=== PATIENT | male | born 1945 | race Caucasian/White ===

== ENCOUNTER → 2019-07-05 | Outpatient (CLI) | payer MEDICARE, BC | END | disposition home or self-care (01) | LOC: PCVCCLINIC 15:00 | PROVIDERS: ATTEND Internal Medicine Cardiovascular Disease | DX: I25.10 Atherosclerotic heart disease of native coronary artery without angina pectoris (principal); I70.1 Atherosclerosis of renal artery; I44.4 Left anterior fascicular block; I65.29 Occlusion and stenosis of unspecified carotid artery; I10 Essential (primary) hypertension; E78.1 Pure hyperglyceridemia; E78.00 Pure hypercholesterolemia, unspecified; F32.9 Major depressive disorder, single episode, unspecified; M19.90 Unspecified osteoarthritis, unspecified site; Z95.5 Presence of coronary angioplasty implant and graft; Z87.891 Personal history of nicotine dependence; Z90.49 Acquired absence of other specified parts of digestive tract | CPT/HCPCS: 36415; 80061; 93005; G0463 ==

== ENCOUNTER → 2019-07-06 | Outpatient (CLI) | payer MEDICARE, BC ==
[~2019-07-06] MED LIST: REGADENOSON 0.4 MG/5 ML DISP.SYRIN. IV ONE
--- NOTE | 2019-07-06 09:19 | PCVCIMAG ---
APPROVED REPORT Laterality: Bilateral Patient Location: Out-Patient Indications Bruit Doppler Spectral Velocity Analysis PSV / EDVPSV / EDV ECA (R) 62 / 12 cm/sECA (L) 42 / 9 cm/s dICA (R) 55 / 20 cm/sdICA (L) 65 / 28 cm/s Carlitos (R) 43 / 17 cm/smICA (L) 42 / 19 cm/s pICA (R) 39 / 9 cm/spICA (L) 36 / 12 cm/s Bulb (R) 46 / 12 cm/sBulb (L) 41 / 10 cm/s dCCA (R) 65 / 19 cm/sdCCA (L) 66 / 20 cm/s mCCA (R) 64 / 14 cm/smCCA (L) 64 / 13 cm/s Vert (R) 54 / 12 cm/sVert (L) 38 / 12 cm/s ICA/CCA 0.85ICA/CCA 0.98 Findings The right carotid bulb has moderate plaque. The right proximal internal carotid artery shows <40% stenosis. The right common carotid artery shows no significant stenosis. The right external carotid artery shows no significant stenosis. The left carotid bulb has moderate plaque. The left proximal internal carotid artery shows <40% stenosis. Conclusion 1. Right internal carotid artery stenosis (<40%). 2. Left internal carotid artery stenosis (<40%) 3. Antegrade vertebral flow.
--- NOTE | 2019-07-06 14:46 | PCVCIMAG ---
EXAM: BILATERAL RENAL ULTRASOUND AND BILATERAL RENAL DUPLEX INDICATION: Hypertension FINDINGS: Right kidney: Length measures 11.9 cm. No hydronephrosis or extensive renal scarring. 5.7 cm benign cyst upper pole. 9.2 cm benign cyst lower pole. Right renal duplex: Adequate technical quality. No sonographic evidence of renal artery stenosis. The aortic to renal artery ratio is 1.3. The renal vein is patent. Left kidney: Length measures 8.7 cm. No hydronephrosis or extensive renal scarring. Several benign-appearing cysts throughout the left kidney the largest measuring 4.2 cm. Left renal duplex: Origin of the left renal artery is not well seen and could be occluded. The aortic to renal artery ratio is 0. The renal vein is patent. Bladder: No obvious abnormalities. IMPRESSION: No right renal artery stenosis seen. Proximal left renal artery is poorly seen and this may be due to high-grade stenosis or occlusion. Further evaluation with CTA is suggested. EXAM: AORTOILIAC DUPLEX INDICATION: Abdominal aortic aneurysm with reported previous stent graft repair. FINDINGS: AORTA: : Suprarenal aorta measures maximum diameter of 3.7 cm. Prior stent graft repair of abdominal aortic aneurysm. Residual aneurysm sac measures maximum diameter of 3.3 x 4.6 cm. No prior study for comparison. No significant aortic stenosis. RIGHT COMMON ILIAC ARTERY: Maximum diameter is 3.4 cm. No significant stenosis. RIGHT EXTERNAL ILIAC ARTERY: No significant stenosis. LEFT COMMON ILIAC ARTERY: Maximum diameter is 1.9 cm. No significant stenosis. LEFT EXTERNAL ILIAC ARTERY: No significant stenosis. IMPRESSION: Apparent prior stent graft repair of abdominal aortic aneurysm with residual aneurysm sac measuring maximum diameter 4.6 cm. 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 Further evaluation of these findings with abdominal and pelvic CTA examination is suggested. LOC:[id number]
--- NOTE | 2019-07-09 15:49 | PCVCIMAG ---
APPROVED REPORT Study performed: 07/06/2019 08:32:08 EXAM: Comprehensive 2D, Doppler, and color-flow Echocardiogram Patient Location: Echo lab Status: routine BSA: 2.22 HR: 63 bpmBP: 144/82 mmHg Rhythm: NSR Other Information Study Quality: Adequate Risk Factors: Cardiac Risk Factors: HTN, Hyperlipidemia Indications CAD tobacco 2D Dimensions IVSd: 15.44 (7-11mm) LVDd: 40.68 mm PWd: 11.81 (7-11mm)Ascending Ao: 41.34 (22-36mm) LVDs: 32.44 (25-40mm) Left Atrium: 33.53 (27-40mm) Aortic Root: 37.32 mm LV Single Plane 4CH: 54.35 % LV Single Plane 2CH: 56.16 % Biplane EF: 53.7 % Volumes Left Atrial Volume (Systole) Single Plane 4CH: 60.07 mLSingle Plane 2CH: 57.45 mL LA ESV Index: 28.00 mL/m2 Aortic Valve AoV Peak Douglas.: 1.58 m/s AO Peak Gr.: 9.93 mmHgLVOT Max P.05 mmHg LVOT Max V: 1.12 m/s Mitral Valve E/A Ratio: 0.8 MV Decel. Time: 338.73 ms MV E Max Douglas.: 0.60 m/s MV A Douglas.: 0.77 m/s IVRT: 121.11 ms Pulmonary Valve PV Peak Douglas.: 0.95 m/sPV Peak Gr.: 3.61 mmHg Pulmonary Vein P Vein S: 0.39 m/sP Vein A: 0.35 m/s P Vein D: 0.49 m/sP Vein A Dur.: 152.2 msec P Vein S/D Ratio: 0.80 Tricuspid Valve TR Peak Douglas.: 2.48 m/s TR Peak Gr.: 24.63 mmHg Left Ventricle The left ventricle is normal size. There is normal LV segmental wall motion. Mild concentric left ventricular hypertrophy. Left ventricular systolic function is normal. Discordant septal motion, probably from an intraventricular conduction delay. The left ventricular ejection fraction is within the normal range. LVEF is 60-65%. Mild diastolic dysfunction is present (impaired relaxation pattern). Right Ventricle The right ventricle is normal size. The right ventricular systolic function is normal. Atria The left atrium size is normal. The right atrium size is normal. Aortic Valve The aortic valve is trileaflet, mildly sclerotic. Mild aortic regurgitation. There is no aortic valvular stenosis. Mitral Valve The mitral valve is normal in structure. Mild mitral regurgitation. No evidence of mitral valve stenosis. Tricuspid Valve The tricuspid valve is normal in structure. Mild tricuspid regurgitation with PAP of 30 mmHg. Pulmonic Valve The pulmonary valve is normal in structure. There is no pulmonic valvular regurgitation. Great Vessels The aortic root is normal in size. The ascending aorta is mildly dilated (4.1 cm) IVC is normal in size and collapses >50% with inspiration. Pericardium There is no pericardial effusion. There is no pleural effusion. <Conclusion> Left ventricular systolic function is normal. Discordant septal motion, probably from an intraventricular conduction delay. There is normal LV segmental wall motion. LVEF is 60-65%. Mild diastolic dysfunction The aortic valve is trileaflet, mildly sclerotic. Mild aortic regurgitation, no stenosis. The mitral valve is normal in structure. Mild mitral regurgitation. Mild tricuspid regurgitation with pulmonary artery pressure of 30 mmHg. The ascending aorta is mildly dilated (4.1 cm) There is no pericardial effusion.
--- NOTE | 2019-07-10 15:22 | PCVCIMAG ---
APPROVED REPORT Imaging Protocol: Rest Tc-99m/Stress Tc-99m 1 day Study performed: 07/06/2019 09:42:36 Indication: Pre-Operative CV evaluation, CAD Patient Location: Out-Patient Stress Nurse: Ángela Baig RN [place] Tech:Silva Puentes [facility] Ht: 6 ft 2 in Wt: 210 lbs BSA: 2.22 m2 HR: 62 bpm BP: 139/74 mmHg BMI: 26.9 Rhythm: Normal Sinus Rhythm with T wave abnormalities Medical History Medical History: Hyperlipidemia, HTN, CVD, PVD, Former Smoker Medications: Amlodipine, Atorvastatin, Hyzaar, Zetia Allergies: No known drug allergies Cardiac Risk Factors: Age Pretest Chest Pain Characteristics: No chest pain Exercise History: Sedentary Physical Disabilities: Hips Resting Data Rest SPECT myocardial perfusion imaging was performed in supine position 45 minutes following the intravenous injection of 10.4 mCi of Tc-99m Sestamibi. Time of rest injection: 0940 Date: 07/06/2019 Administration Route: IV Administration Site: Left Hand Pharmacologic Stress Pharmacologic stress test was performed by injecting Regadenoson 0.4 mg IV push over 10-15 seconds immediately followed by the intravenous injection of 32.1 mCi of Tc-99m Sestamibi. Time of stress injection: 1100 Date: 07/06/2019 Administration Route: IV Administration Site: Left Hand Gated Stress SPECT was performed 45 minutes after stress injection. The images were gated to evaluate regional wall motion and calculate left ventricular ejection fraction. Stress Test Details Stress Test: Pharmacologic stress was paired with low level exercise. Reason for pharmacologic stress test: physical limitation, using a cane. HRMax Heart Rate (APMHR): 148 bpm Resting HR: 62 bpmTarget HR (85% APMHR): 125 bpm Max HR Achieved: 82 bpm % of APMHR: 55 Recovery HR: 74 bpm BP Resting BP: 139/74 mmHg Max BP: 147/69 mmHg Recovery BP: 129/64 mmHg ECG Resting ECG: Normal Sinus Rhythm with T wave abnormalities Stress ECG: Normal Sinus Rhythm with T wave abnormalities Arrhythmia: PAC's Recovery ECG: Normal Sinus Rhythm with T wave abnormalities Clinical Reason for Termination: Completed protocol Stress Symptoms: Dyspnea Symptoms resolved with caffeine. Stress ECG Conclusion ECG: Non-ischemic Study Quality Study: Good Study Data Post stress, the left ventricular ejection was 68%.. SSS: 3 SRS: 6 SDS: 0 TID = 0.83. Perfusion No evidence of stress induced ischemia or prior myocardial infarction. Wall Motion Normal left ventricular size and function with no regional wall motion abnormalities. Nuclear Conclusion No evidence of stress induced ischemia or prior myocardial infarction. Normal left ventricular size and function with no regional wall motion abnormalities. Post stress, the left ventricular ejection was 68%. No prior study available for comparison. Interpreted by: Warner Delgado MD Electronically Approved: 07/06/2019 14:28:17 <Conclusion> ECG: Non-ischemic
== END | disposition home or self-care (01) ==
LOC: PCVCIMAG 07:49
PROVIDERS: ATTEND Internal Medicine Cardiovascular Disease
DX: I08.3 Combined rheumatic disorders of mitral, aortic and tricuspid valves (principal); I65.23 Occlusion and stenosis of bilateral carotid arteries; I71.4 Abdominal aortic aneurysm, without rupture; I25.10 Atherosclerotic heart disease of native coronary artery without angina pectoris; E78.00 Pure hypercholesterolemia, unspecified; I70.1 Atherosclerosis of renal artery; E78.5 Hyperlipidemia, unspecified; I11.9 Hypertensive heart disease without heart failure; Z86.73 Personal history of transient ischemic attack (TIA), and cerebral infarction without residual deficits; Z85.46 Personal history of malignant neoplasm of prostate; Z90.49 Acquired absence of other specified parts of digestive tract; Z90.09 Acquired absence of other part of head and neck; Z82.49 Family history of ischemic heart disease and other diseases of the circulatory system; Z87.891 Personal history of nicotine dependence
CPT/HCPCS: 76770; 78452; 93017; 93306; 93880; 93975; A9500; J2785